=== PATIENT | female | born 1950 | race Caucasian/White ===

== ENCOUNTER 2019-01-31 17:05 | Observation (INO) | payer MEDICARE, OTHER ==
[~2019-01-31] VITALS: Ht 172.7 cm; Wt 99.5 kg
[~2019-01-31 17:05] MED LIST: CHOL10002; CYAN500; DIGOXIN; FAMO20 PO; FISH OIL + D31 EACH; FURO40; LEVSOD100; LEVSOD100 PO; METF500C; METO50; Ocuvite Softge1 EAC1; PANT40 PO; Red Yeast Rice600 MG; XARELTO20 MG
[2019-01-31 17:27] LABS: BASOPHILS ABSOLUTE AUTO 0.03 K/mm3 (0.00-0.23); BASOPHILS PERCENT AUTO 0 % (0-2); EOSINOPHILS ABSOLUTE AUTO 0.09 K/mm3 (0.00-0.68); EOSINOPHILS PERCENT AUTO 1 % (0-6); IMMATURE GRAN ABSOLUTE AUTO 0.04 K/mm3 (0.00-0.10); IMMATURE GRAN PERCENT AUTO 0 % (0-1); LYMPHOCYTES ABSOLUTE AUTO 2.83 K/mm3 (0.84-5.20); LYMPHOCYTES PERCENT AUTO 28 % (21-46); MONOCYTES ABSOLUTE AUTO 0.92 K/mm3 (0.16-1.47); MONOCYTES PERCENT AUTO 9 % (4-13); Mean Corpuscular HGB 32.2 pg (26.0-34.0); Mean Corpuscular HGB Conc 33.3 g/dL (31.5-36.5); Mean Corpuscular Volume 97 fL (80-100); Mean Platelet Volume 10.7 fL (9.1-12.4); NEUTROPHILS ABSOLUTE AUTO 6.38 K/mm3 (1.96-9.15); NEUTROPHILS PERCENT AUTO 62 % (41-73); Platelet Count 234 K/mm3 (150-400); RDW Coefficient Variation 14.1 % (11.7-14.2); RDW Standard Deviation 50.1 fL (35.1-46.3); Red Blood Cell Count 4.04 M/mm3 (3.80-5.20); White Blood Cell Count 10.29 K/mm3 (4.00-11.30)
[2019-01-31 17:41] LABS: International Normalized Ratio 2.57
[2019-01-31 17:46] LABS: Alanine Aminotransfer (ALT/SGP 29 U/L (12-78); Albumin/Globulin Ratio 1.1 (0.8-1.8); Alk Phos 71 U/L (50-136); Anion Gap 7 mmol/L (6-16); Aspartate Aminotrans (AST/SGOT 24 U/L (12-37); Blood Urea Nitrogen 17 mg/dL (8-24); Bun/Creatinine Ratio 17.3 (12.0-20.0); CO2, Blood 28 mmol/L (21-32); Calcium, Blood 8.9 mg/dL (8.5-10.1); Chloride, Blood 102 mmol/L (98-108); Creatinine, Blood 0.98 mg/dL (0.40-1.00); Globulin, Blood 3.8 g/dL (2.2-4.0); Glomerular Filtration Rate 60 (60-); Glucose, Blood 89 mg/dL (70-99); Potassium, Blood 3.6 mmol/L (3.5-5.5); Sodium, Blood 137 mmol/L (136-145); Total Protein, Blood 7.8 g/dL (6.4-8.2); Troponin I <0.015 ng/mL (0.000-0.040)
[2019-01-31 18:03] LABS: Digoxin (Lanoxin) 1.58 ug/mL (0.80-2.00)
[2019-01-31] MEDS ORDERED: CHOL10002 (18:21)
[2019-01-31] MEDS ORDERED: FAMO20 PO (18:22)
[2019-01-31] MEDS ORDERED: DIGOX250 MCG PO (18:22)
[2019-01-31] MEDS ORDERED: LEVSOD100 PO (18:23)
[2019-01-31] MEDS ORDERED: METO50 PO (18:23)
[2019-01-31] MEDS ORDERED: WARF7.5 PO (18:24)
[2019-01-31 18:38] LABS: Free Thyroxine 1.3 ng/dL (0.70-1.60)
[2019-01-31 18:41] LABS: Thyroid Stimulating Hormone 1.1 uIU/mL (0.360-4.800); Triiodothyronine, Free 2.3 pg/mL (2.18-3.98)
--- NOTE | 2019-02-01 03:54 | NUR ---
NOC SHIFT SUMMARY PT ADMITTED THIS NIGHT FOR CHEST PAIN/PRESSURE WHICH STARTED THE PREVIOUS DAY AND SEEMED TO WORSEN WHEN HER GRANDSON SMOKES MARIJUANA INSIDE THE HOUSE. THE PAIN WAS RELIEVED WITH NITRO PRIOR TO ADMITT. PT STATES SHE HAS NOT HAD ANY PAIN SINCE COMING TO THE FLOOR. ON TELE AFIB RATE 55 AT THIS TIME PER RACING MECHANIC. PT HAS BEEN NPO SINCE MIDNIGHT IN ANTICIPATION OF STRESS TEST IN A.M. VSS. APPEARS IN NO ACTUE DISTRESS. WILL CONTINUE TO MONITOR.
[2019-02-01 05:24] LABS: BASOPHILS ABSOLUTE AUTO 0.02 K/mm3 (0.00-0.23); BASOPHILS PERCENT AUTO 0 % (0-2); EOSINOPHILS ABSOLUTE AUTO 0.11 K/mm3 (0.00-0.68); EOSINOPHILS PERCENT AUTO 2 % (0-6); Hematocrit 39.9 % (33.0-51.0); Hemoglobin 13.1 g/dL (11.5-16.0); IMMATURE GRAN ABSOLUTE AUTO 0.01 K/mm3 (0.00-0.10); IMMATURE GRAN PERCENT AUTO 0 % (0-1); LYMPHOCYTES ABSOLUTE AUTO 2.21 K/mm3 (0.84-5.20); LYMPHOCYTES PERCENT AUTO 38 % (21-46); MONOCYTES ABSOLUTE AUTO 0.55 K/mm3 (0.16-1.47); MONOCYTES PERCENT AUTO 9 % (4-13); Mean Corpuscular HGB Conc 32.8 g/dL (31.5-36.5); Mean Corpuscular Volume 97 fL (80-100); Mean Platelet Volume 10.2 fL (9.1-12.4); NEUTROPHILS PERCENT AUTO 51 % (41-73); Platelet Count 190 K/mm3 (150-400); RDW Coefficient Variation 13.9 % (11.7-14.2); RDW Standard Deviation 50.4 fL (35.1-46.3)
[2019-02-01 05:37] LABS: International Normalized Ratio 2.54; Prothrombin Time Results 24.7 Sec (9.7-11.5)
[2019-02-01 05:51] LABS: Anion Gap 8 mmol/L (6-16); Blood Urea Nitrogen 15 mg/dL (8-24); Bun/Creatinine Ratio 18.1 (12.0-20.0); CO2, Blood 28 mmol/L (21-32); Calcium, Blood 8.8 mg/dL (8.5-10.1); Chloride, Blood 105 mmol/L (98-108); Creatinine, Blood 0.83 mg/dL (0.40-1.00); Glomerular Filtration Rate >60 (60-); Glucose, Blood 99 mg/dL (70-99); Potassium, Blood 3.2 mmol/L (3.5-5.5); Sodium, Blood 141 mmol/L (136-145)
[2019-02-01 07:54] LABS: CHOL/HDL RATIO 2.7; Cholesterol 134 mg/dL (50-200); HDL Cholesterol 50 mg/dL (>39); LDL/HDL RATIO 1.2; Low Density Lipoprotein Chol 59 mg/dL (0-110); Magnesium, Blood 2.1 mg/dL (1.6-2.4); Triglycerides 127 mg/dL (30-160); Very Low Density Lipoprot Chol 25 mg/dL (6-32)
--- NOTE | 2019-02-01 09:17 | NUR ---
MEDS HELD DUE TO STRESS TEST IN PROGRESS; PT NPO.
--- NOTE | 2019-02-01 12:18 | NUR ---
echocardiogram complete
--- NOTE | 2019-02-01 15:35 | NUR ---
CALLED DR. LUIS AND NOTIFIED HER THAT PT'S CARDIAC STRESS RESULTS WERE AVAILABLE.
[2019-02-01] MEDS ORDERED: ASPI81CH PO (17:05)
--- NOTE | 2019-02-01 17:15 | NUR ---
PT DISCHARGED AMBULATORY POV WITH SPOUSE AND IN NO ACUTE DISTRESS. PT TO FOLLOW UP WITH EXTENSION COURSE COORDINATOR ABOUT TODAY'S STRESS TEST RESULTS AND POSSIBLE ANGIOGRAM OUTPATIENT. DR. LUIS TO CALL PT IN A.M. WITH ECHO RESULTS. PT AND SPOUSE VERBALIZED UNDERSTANDING OF DISCHARGE INSTRUCTIONS AND IMPORTANCE OF RETURNING TO THE HOSPITAL IF CHEST PAIN RETURNS OR IF SYMPTOMS WORSEN. IV DISCONTINUED INTACT. ALL BELONGINGS SENT HOME WITH PT.
== END 2019-02-01 17:12 | disposition home or self-care (01) ==
LOC: ER 17:05 → MEDS 17:06
PROVIDERS: Emergency Medicine; ADMIT Internal Medicine
DX: R07.89 Other chest pain (principal); R94.39 Abnormal result of other cardiovascular function study; E03.9 Hypothyroidism, unspecified; K21.9 Gastro-esophageal reflux disease without esophagitis; J45.909 Unspecified asthma, uncomplicated; I48.91 Unspecified atrial fibrillation; Z88.8 Allergy status to other drugs, medicaments and biological substances; Z79.899 Other long term (current) drug therapy
CPT/HCPCS: 36415; 71046; 78452; 80048; 80053; 80061; 80162; 83735; 83880; 84439; 84443; 84481; 84484; 85025; 85610; 85730; 93005; 93010; 93017; 93306; 99285-25; A9500; G0378; J0706; J2785

== ENCOUNTER → 2022-08-11 | Outpatient (CLI) | payer MEDICARE, OTHER ==
[~2022-08-11] MED LIST changes: +ASPI81CH PO; +DIGOX250 MCG PO; +METO50 PO; +WARF7.5 PO
[2022-08-11 16:21] LABS: BASOPHILS ABSOLUTE AUTO 0.02 K/mm3 (0.00-0.23); BASOPHILS PERCENT AUTO 0 % (0-2); EOSINOPHILS ABSOLUTE AUTO 0.03 K/mm3 (0.00-0.68); EOSINOPHILS PERCENT AUTO 0 % (0-6); Hematocrit 36.4 % (33.0-51.0); Hemoglobin 12.4 g/dL (11.5-16.0); IMMATURE GRAN ABSOLUTE AUTO 0.02 K/mm3 (0.00-0.10); IMMATURE GRAN PERCENT AUTO 0 % (0-1); LYMPHOCYTES ABSOLUTE AUTO 1.63 K/mm3 (0.84-5.20); LYMPHOCYTES PERCENT AUTO 19 % (21-46); MONOCYTES ABSOLUTE AUTO 0.78 K/mm3 (0.16-1.47); MONOCYTES PERCENT AUTO 9 % (4-13); Mean Corpuscular HGB 32.4 pg (26.0-34.0); Mean Corpuscular HGB Conc 34.1 g/dL (31.5-36.5); Mean Corpuscular Volume 95 fL (80-100); Mean Platelet Volume 9.2 fL (9.1-12.4); NEUTROPHILS ABSOLUTE AUTO 5.98 K/mm3 (1.96-9.15); NEUTROPHILS PERCENT AUTO 71 % (41-73); Platelet Count 275 K/mm3 (150-400); RDW Coefficient Variation 14.3 % (11.7-14.2); RDW Standard Deviation 49.3 fL (35.1-46.3); Red Blood Cell Count 3.83 M/mm3 (3.80-5.20); White Blood Cell Count 8.46 K/mm3 (4.00-11.30)
[2022-08-11 16:30] LABS: Albumin, Blood 3.2 g/dL (3.4-5.0); Albumin/Globulin Ratio 0.7 (0.8-1.8); Bilirubin, Total 0.7 mg/dL (0.1-1.0); Bun/Creatinine Ratio 12.9 (12.0-20.0); Calcium, Blood 9.4 mg/dL (8.5-10.1); Creatinine, Blood 1.01 mg/dL (0.40-1.00); Globulin, Blood 4.8 g/dL (2.2-4.0); Potassium, Blood 3.8 mmol/L (3.5-5.5)
== END | disposition home or self-care (01) ==
LOC: LAB 16:15 → LAB SHORT 16:15
PROVIDERS: Physician Assistant
DX: R05.3 Chronic cough (principal)
CPT/HCPCS: 80053; 83880; 85025

== ENCOUNTER 2025-03-27 18:35 | Inpatient (IN) | payer MEDICARE, OTHER ==
[~2025-03-27] VITALS: Ht 170.2 cm; Wt 138.6 kg
[~2025-03-27 18:35] MED LIST changes: +METO100ER PO; -METO50 PO
[2025-03-27] MEDS ORDERED: NS 1,000 ML IV SCH (18:50)
[2025-03-27 19:01] LABS: BASOPHILS ABSOLUTE AUTO 0.02 K/mm3 (0.00-0.23); BASOPHILS PERCENT AUTO 0 % (0-2); EOSINOPHILS ABSOLUTE AUTO 0.00 K/mm3 (0.00-0.68); EOSINOPHILS PERCENT AUTO 0 % (0-6); Hematocrit 34.9 % (33.0-51.0); Hemoglobin 11.8 g/dL (11.5-16.0); IMMATURE GRAN ABSOLUTE AUTO 0.08 K/mm3 (0.00-0.10); IMMATURE GRAN PERCENT AUTO 1 % (0-1); LYMPHOCYTES ABSOLUTE AUTO 0.38 K/mm3 (0.84-5.20); LYMPHOCYTES PERCENT AUTO 4 % (21-46); MONOCYTES ABSOLUTE AUTO 0.35 K/mm3 (0.16-1.47); MONOCYTES PERCENT AUTO 4 % (4-13); Mean Corpuscular HGB Conc 33.8 g/dL (31.5-36.5); Mean Corpuscular Volume 96 fL (80-100); NEUTROPHILS ABSOLUTE AUTO 8.42 K/mm3 (1.96-9.15); NEUTROPHILS PERCENT AUTO 91 % (41-73); NRBC ABSOLUTE 0.00 K/mm3 (0.00-0.02); NRBC Auto 0.0 /100 WBC (0.0-0.2); Platelet Count 144 K/mm3 (150-400); RDW Coefficient Variation 14.6 % (11.7-14.2); RDW Standard Deviation 52.0 fL (35.1-46.3)
[2025-03-27] MEDS ORDERED: Clindamycin 600mg in D5W 50 ML IV ONE (19:05)
[2025-03-27 19:25] LABS: Alanine Aminotransfer (ALT/SGP 46 U/L (12-78); Albumin, Blood 3.1 g/dL (3.4-5.0); Albumin/Globulin Ratio 0.8 (0.8-1.8); Anion Gap 11 mmol/L (3-11); Aspartate Aminotrans (AST/SGOT 41 U/L (12-37); Bilirubin, Total 1.4 mg/dL (0.1-1.0); Blood Urea Nitrogen 23 mg/dL (8-24); CO2, Blood 23 mmol/L (21-32); Calcium, Blood 8.9 mg/dL (8.5-10.1); Chloride, Blood 105 mmol/L (98-108); Creatinine, Blood 1.25 mg/dL (0.40-1.00); Globulin, Blood 3.8 g/dL (2.2-4.0); Glucose, Blood 117 mg/dL (70-99); Magnesium, Blood 1.9 mg/dL (1.6-2.4); Phosphorus, Blood 2.1 mg/dL (2.5-4.9); Potassium, Blood 3.7 mmol/L (3.5-5.5); Sodium, Blood 135 mmol/L (136-145); Total Protein, Blood 6.9 g/dL (6.4-8.2)
[2025-03-27 19:39] LABS: Influenza A, PCR NEGATIVE (NEGATIVE); Influenza B, PCR NEGATIVE (NEGATIVE); Resp Syncytial Virus, PCR NEGATIVE (NEGATIVE); SARS-Cov-2 (COVID-19) PCR, MMC NEGATIVE (NEGATIVE)
[2025-03-27 21:03] LABS: Prothrombin Time Results 13.5 Sec (9.7-11.5)
[2025-03-27] MEDS ORDERED: Potassium Phosphate Dibasic 15 MM in Dextrose 5% 250 ML IV STA (22:09)
[2025-03-27] MEDS ORDERED: Mag Sulfate 1 GM/D5% 100ML 100 ML IV STA (22:15)
[2025-03-27 22:23] LABS: Source, Urine Clean Catch
[2025-03-27 22:33] LABS: C-REACTIVE PROTEIN, EXT RANGE >19.000 mg/dL (0.000-0.300)
[2025-03-27 22:39] LABS: Bilirubin, Urine Neg (Neg); Glucose Qualitative, Urine Neg (Neg); Ketones, Urine Neg (Neg); Leukocyte Esterase, Urine 1+ (Neg); Protein, Urine 3+ (Neg); Specific Gravity, Urine 1.010 (1.003-1.022); Urobilinogen, Urine 2+ (Normal)
[2025-03-27 22:44] LABS: Color, Urine Yellow (P-Yellow)
[2025-03-27] MEDS ORDERED: CefTRIAXone Sodium 2,000 MG in NS 100 ML IV SCH (22:49)
[2025-03-28] VITALS (18 sets, daily range): BP systolic 81–147; BP diastolic 54–92
[2025-03-28] MEDS ORDERED: ENTRESTO 24 MG1 EACH PO (00:15)
[2025-03-28] MEDS ORDERED: POTA10T PO (00:16)
[2025-03-28] MEDS ORDERED: VITAMIN B12500 MCG PO (00:18)
[2025-03-28] MEDS ORDERED: FURO80 PO (00:19)
[2025-03-28] MEDS ORDERED: CefTRIAXone Sodium 2,000 MG in NS 100 ML IV SCH (01:35)
[2025-03-28] MEDS ORDERED: NS 250 ML IV PRN (01:45)
[2025-03-28 05:21] LABS: BASOPHILS ABSOLUTE AUTO 0.01 K/mm3 (0.00-0.23); BASOPHILS PERCENT AUTO 0 % (0-2); EOSINOPHILS ABSOLUTE AUTO 0.00 K/mm3 (0.00-0.68); EOSINOPHILS PERCENT AUTO 0 % (0-6); Hematocrit 35.5 % (33.0-51.0); Hemoglobin 11.9 g/dL (11.5-16.0); IMMATURE GRAN ABSOLUTE AUTO 0.02 K/mm3 (0.00-0.10); IMMATURE GRAN PERCENT AUTO 0 % (0-1); LYMPHOCYTES ABSOLUTE AUTO 0.23 K/mm3 (0.84-5.20); LYMPHOCYTES PERCENT AUTO 3 % (21-46); MONOCYTES ABSOLUTE AUTO 0.24 K/mm3 (0.16-1.47); MONOCYTES PERCENT AUTO 3 % (4-13); Mean Corpuscular HGB Conc 33.5 g/dL (31.5-36.5); Mean Corpuscular Volume 98 fL (80-100); NEUTROPHILS ABSOLUTE AUTO 6.75 K/mm3 (1.96-9.15); NEUTROPHILS PERCENT AUTO 93 % (41-73); NRBC ABSOLUTE 0.00 K/mm3 (0.00-0.02); NRBC Auto 0.0 /100 WBC (0.0-0.2); Platelet Count 124 K/mm3 (150-400); RDW Coefficient Variation 14.7 % (11.7-14.2); RDW Standard Deviation 53.1 fL (35.1-46.3)
--- NOTE | 2025-03-28 05:27 | NUR ---
PT CAME TO FLOOR FROM ED AT 0105. SEPSIS DT CELLULITIS OF L LEG. PT IS ALERT AND ORIENTED WITH BOUTS OF CONFUSION. ORDERS PUT IN BY DR GUNN AROUND 0520 DT HIGH HR, FEVER AND BP. MEDICATED PER EMAR, BOLUS OF LR RAN. PT TOLERATED WELL.
[2025-03-28 05:39] LABS: Alanine Aminotransfer (ALT/SGP 44.0 U/L (12-78); Albumin, Blood 2.9 g/dL (3.4-5.0); Albumin/Globulin Ratio 0.7 (0.8-1.8); Anion Gap 11.0 mmol/L (3-11); Aspartate Aminotrans (AST/SGOT 40.0 U/L (12-37); Bilirubin, Total 1.8 mg/dL (0.1-1.0); Blood Urea Nitrogen 22.0 mg/dL (8-24); CO2, Blood 23.0 mmol/L (21-32); Calcium, Blood 8.4 mg/dL (8.5-10.1); Chloride, Blood 105.0 mmol/L (98-108); Creatinine, Blood 1.17 mg/dL (0.40-1.00); Globulin, Blood 4.0 g/dL (2.2-4.0); Glucose, Blood 129.0 mg/dL (70-99); Phosphorus, Blood 2.9 mg/dL (2.5-4.9); Potassium, Blood 3.8 mmol/L (3.5-5.5); Sodium, Blood 135.0 mmol/L (136-145); Total Protein, Blood 6.9 g/dL (6.4-8.2)
[2025-03-28] MEDS ORDERED: Metoprolol Tartrate 1 MG/ML 5 ML VIAL IV ONE (06:00)
--- NOTE | 2025-03-28 06:41 | NUR ---
VITALS 111/48 123 103.0 - TEMPORAL 102 - ORAL 88% 2L NC ADDED AFLUTTER ON TELE
[2025-03-28] MEDS ORDERED: Mag Sulfate 1 GM/D5% 100ML 100 ML IV STA (07:08)
[2025-03-28 07:37] LABS: Magnesium, Blood 2.1 mg/dL (1.6-2.4); Thyroid Stimulating Hormone 0.798 uIU/mL (0.360-4.800)
[2025-03-28 07:41] LABS: C-REACTIVE PROTEIN, EXT RANGE >19.000 mg/dL (0.000-0.300)
[2025-03-28 07:51] LABS: pH Blood Venous 7.45 (7.34-7.37)
--- NOTE | 2025-03-28 08:01 | NUR ---
CALL FROM [facility] IN [facility]: BLOOD Cx + GRAM+ COCCI IN CHAINS x2.
[2025-03-28] MEDS ORDERED: Lactobacil 2-S.Thermo-Bifido 1 1 Cap PO SCH (09:00)
[2025-03-28] MEDS ORDERED: Heparin Sodium,Porcine 5,000 UNIT/0.5 ML SDV SC SCH (09:00)
--- NOTE | 2025-03-28 09:33 | NUR ---
REPORT TO REGI MCPHERSON. PT TO TRANSFER TO [facility].
--- NOTE | 2025-03-28 10:01 | NUR ---
TRANSFER NOTE: PT TRANSFERRED TO [facility] AFTER GIVING REPORT TO REGI MCPHERSON. LR @ 200mL/hr VIA RFA; NOTED TO BE INFILTRATED UPON ARRIVAL TO PCU--TOTAL VOLUME INFUSED 33mL LR. LEFT FLOOR WITH ALL BELONGINGS, PAPER CHART AND MORNING MEDS (HELD PER CLINICAL JUDGMENT D/T PT MENTAL STATUS.
[2025-03-28] MEDS ORDERED: Miconazole Nitrate 2% 85 GM PWD TOP SCH ×2 (10:55→21:00)
[2025-03-28] MEDS ORDERED: Polyethylene Glycol 3350 17 gm PO SCH (11:00)
[2025-03-28] MEDS ORDERED: Clindamycin 900mg in D5W 50ML 50 ML IV SCH (14:00)
--- NOTE | 2025-03-28 17:27 | NUR ---
EOS: PATIENT MINIMALLY IMPROVED THROUGH THE SHIFT, IS A/O X 3, BUT IMPROVING WELL. TOELRATING ORAL INTAKE, PILLS WHOLE WITH WATER, DENIED CHEST PAIN/PRESSURE OR SOB AT REST THROUGH THE SHIFT, WENT TO IMAGING FOR CXR, IS SLIGHTLY RETAINING URINE BUT WAS ABLE TO VOID 200, BLADDER TRAINING AND ENCOURAGEMENT, DECLINED STRAIGHT CATH AT THIS TIME. CONTINUING TO MONITOR. HR HAS BEEN SLIGHTLY BETTER ARRIVED TO THE UNIT IN THE 130'S CURRENLTY 100-110'S. BLOOD PRESSURE ALSO IMPROVED THROUGHOUT THE DAY SYSTOLIC IN THE 100-110'S. ONLY CONCERN IS VOIDING, PATIENT EDUCATED WELL ON NEED AND POTENTIAL STRAIGHT CATH. PATIENT UNDERSTOOD. PLAN OF CARE CONTINUES
--- NOTE | 2025-03-28 17:52 | NUR ---
EOS: PATIENT IS ALERT AND ORIENTED X 2-3, MENTATION WAKES AND WANES, HAS BEEN SLEEPING MOST OF THE DAY WAKES EASILY FOR CARES, ABLE TO ANSWER MOST QUESTIONS APPRORIATELY DOES HAVE MUMBLED SLURRED SPEECH WHICH APPEARS TO BE BASELINE, DENIES CHEST PAIN/PRESSURE OR SOB AT REST, THIS AM WAS ON 4L VIA NC WITH SPO2 >98%, DECREASED TO 2-2.5L SPO2 > 92%. PT WITH HX OF COPD. BLOOD PRESSURE SLIGHTLY HYPERTENSIVE THIS AM, SLIGHTLY IMPROVED OF THIS EVENING. CIWA RANGED FROM 4-11, MEDICATED ONCE WITH LIBRIUM PO 50mg PER ORDERS. PATIENT ABLE TO MAKE NEEDS KNOWN MOST OF THE TIME, BED ALARM ON FOR SAFETY DID SET OF A COUPLE OF TIMES. DOES NOT UTILIZE CALL LIGHT APPROPRIATELY. NO ACUTE CONCERNS PATIENT IS NOW MEDICAL STATUS. [facility]
[2025-03-29] VITALS (7 sets, daily range): BP systolic 80–110; BP diastolic 56–77
[2025-03-29 05:33] LABS: BASOPHILS ABSOLUTE AUTO 0.01 K/mm3 (0.00-0.23); BASOPHILS PERCENT AUTO 0 % (0-2); EOSINOPHILS ABSOLUTE AUTO 0.01 K/mm3 (0.00-0.68); EOSINOPHILS PERCENT AUTO 0 % (0-6); Hematocrit 32.0 % (33.0-51.0); Hemoglobin 10.7 g/dL (11.5-16.0); IMMATURE GRAN ABSOLUTE AUTO 0.02 K/mm3 (0.00-0.10); IMMATURE GRAN PERCENT AUTO 0 % (0-1); LYMPHOCYTES ABSOLUTE AUTO 0.51 K/mm3 (0.84-5.20); LYMPHOCYTES PERCENT AUTO 10 % (21-46); MONOCYTES ABSOLUTE AUTO 0.50 K/mm3 (0.16-1.47); MONOCYTES PERCENT AUTO 10 % (4-13); Mean Corpuscular HGB Conc 33.4 g/dL (31.5-36.5); Mean Corpuscular Volume 95 fL (80-100); NEUTROPHILS ABSOLUTE AUTO 4.13 K/mm3 (1.96-9.15); NEUTROPHILS PERCENT AUTO 80 % (41-73); NRBC ABSOLUTE 0.00 K/mm3 (0.00-0.02); NRBC Auto 0.0 /100 WBC (0.0-0.2); Platelet Count 115 K/mm3 (150-400); RDW Coefficient Variation 14.4 % (11.7-14.2); RDW Standard Deviation 50.5 fL (35.1-46.3)
[2025-03-29 05:50] LABS: Alanine Aminotransfer (ALT/SGP 57.0 U/L (12-78); Albumin, Blood 2.5 g/dL (3.4-5.0); Albumin/Globulin Ratio 0.7 (0.8-1.8); Anion Gap 9.0 mmol/L (3-11); Aspartate Aminotrans (AST/SGOT 70.0 U/L (12-37); Bilirubin, Total 1.3 mg/dL (0.1-1.0); Blood Urea Nitrogen 19.0 mg/dL (8-24); CO2, Blood 25.0 mmol/L (21-32); Calcium, Blood 8.1 mg/dL (8.5-10.1); Chloride, Blood 102.0 mmol/L (98-108); Creatinine, Blood 0.98 mg/dL (0.40-1.00); Globulin, Blood 3.8 g/dL (2.2-4.0); Glucose, Blood 96.0 mg/dL (70-99); Magnesium, Blood 2.1 mg/dL (1.6-2.4); Potassium, Blood 3.6 mmol/L (3.5-5.5); Sodium, Blood 132.0 mmol/L (136-145); Total Protein, Blood 6.3 g/dL (6.4-8.2)
--- NOTE | 2025-03-29 07:30 | NUR ---
SHIFT SUMMARY: PT IS A&OX3, OFF ON THE DATE. JUAN JOSE IS PLEASANT AND COOPERATIVE WITH CARE. VSS ON 1.5L OXYGEN VIA NC, SPO2 94%. AFLUTTER 120'S-130'S, OCCASIONALLY HR HIT 150. DAYTIME DOSE OF METOPROLOL GIVEN AT 0006, D/T HR. DENIES PAIN. TOLERATING A HEART HEALTHY DIET. PT NOT OOB THIS SHIFT, REPOSITIONING TOLERATED. WICKING SYSTEM IN PLACE. VOIDING SMALL AMOUNTS OF DARK COLLEEN COLORED URINE. NO BM THIS SHIFT, BOWEL CARE ADMINISTERED. BED IN LOWEST POSITION, CALL LIGHT WITHIN REACH. CALLS APPROPRIATELY AND IS ABLE TO ADVOCATE NEEDS EFFECTIVELY.
[2025-03-29] MEDS ORDERED: Potassium Chloride 10 Meq Tablet SA PO SCH (08:00)
[2025-03-29] MEDS ORDERED: PRESERVISION A1 EAC1 PO (09:31)
--- NOTE | 2025-03-29 16:21 | NUR ---
SHIFT SUMMARY PT A&Ox4, CALLS AND COMMUNICATES NEEDS APPROPRIATELY. BP SOFT WITH SBP 80-100's, MAP> 65, ASYMPTOMATIC, A-FLUTTER 100-130's, DENIES CP/PRESSURE. SpO2> 92% RA, DENIES SOB. PT REMAINED BEDREST, Q2 TURNS PROVIDED. PUREWICK IN PLACE FOR INCONTINENCE AND ACCURATE I&Os. MINIMAL DARK COLLEEN URINE OUTPUT THIS SHIFT. NO C/O PAIN. REDNESS IN LLE IMPROVING. NO OTHER EVENTS, WILL REPORT TO ONCOMING RN
[2025-03-30] VITALS (8 sets, daily range): BP systolic 87–111; BP diastolic 61–78
[2025-03-30 04:28] LABS: BASOPHILS ABSOLUTE AUTO 0.01 K/mm3 (0.00-0.23); BASOPHILS PERCENT AUTO 0 % (0-2); EOSINOPHILS ABSOLUTE AUTO 0.09 K/mm3 (0.00-0.68); EOSINOPHILS PERCENT AUTO 2 % (0-6); Hematocrit 33.7 % (33.0-51.0); Hemoglobin 11.0 g/dL (11.5-16.0); IMMATURE GRAN ABSOLUTE AUTO 0.04 K/mm3 (0.00-0.10); IMMATURE GRAN PERCENT AUTO 1 % (0-1); LYMPHOCYTES ABSOLUTE AUTO 0.61 K/mm3 (0.84-5.20); LYMPHOCYTES PERCENT AUTO 15 % (21-46); MONOCYTES ABSOLUTE AUTO 0.60 K/mm3 (0.16-1.47); MONOCYTES PERCENT AUTO 15 % (4-13); Mean Corpuscular HGB Conc 32.6 g/dL (31.5-36.5); Mean Corpuscular Volume 97 fL (80-100); NEUTROPHILS ABSOLUTE AUTO 2.72 K/mm3 (1.96-9.15); NEUTROPHILS PERCENT AUTO 67 % (41-73); NRBC ABSOLUTE 0.00 K/mm3 (0.00-0.02); NRBC Auto 0.0 /100 WBC (0.0-0.2); Platelet Count 108 K/mm3 (150-400); RDW Coefficient Variation 14.7 % (11.7-14.2); RDW Standard Deviation 53.3 fL (35.1-46.3)
--- NOTE | 2025-03-30 04:41 | NUR ---
SHIFT SUMMARY THIS RN ASSUMED CARE OF PATIENT AT 1900. PT A&0 X4. ABLE TO MAKE NEEDS KNOWN. AFIB WITH HR 90-120S. DENIES CHEST PAIN/PRESSURE. BP SOFT WITH SBP 80-100S. MAP >65. ON RA WITH SPO2 >92%. AFEBRILE. PUREWICK IN PLACE. COLLEEN COLORED URINE NOTED. LLE CELLULITIS REMAINS IN MARKED OUTLINES. REPORTS PAIN WHEN PALPATING BACK OF LEG. ASSISTING WITH REPOSITIONING. BED IN LOWEST POSITION AND CALL LIGHT WITHIN REACH. THIS RN WILL REPORT TO ONCOMING DAYSHIFT RN.
[2025-03-30 05:00] LABS: Alanine Aminotransfer (ALT/SGP 70.0 U/L (12-78); Albumin, Blood 2.3 g/dL (3.4-5.0); Albumin/Globulin Ratio 0.6 (0.8-1.8); Anion Gap 9.0 mmol/L (3-11); Aspartate Aminotrans (AST/SGOT 82.0 U/L (12-37); Bilirubin, Total 1.2 mg/dL (0.1-1.0); Blood Urea Nitrogen 19.0 mg/dL (8-24); CO2, Blood 24.0 mmol/L (21-32); Calcium, Blood 8.5 mg/dL (8.5-10.1); Chloride, Blood 102.0 mmol/L (98-108); Creatinine, Blood 0.94 mg/dL (0.40-1.00); Globulin, Blood 3.9 g/dL (2.2-4.0); Glucose, Blood 88.0 mg/dL (70-99); Magnesium, Blood 2.4 mg/dL (1.6-2.4); Potassium, Blood 3.8 mmol/L (3.5-5.5); Sodium, Blood 131.0 mmol/L (136-145); Total Protein, Blood 6.2 g/dL (6.4-8.2)
[2025-03-30] MEDS ORDERED: PRESERVISION AREDS PO SCH (09:00)
[2025-03-30] MEDS ORDERED: Beta-Carotene (A) W-C & E/Min 1 Tab PO SCH (10:00)
--- NOTE | 2025-03-30 14:10 | NUR ---
REPORT TO NATHAN RN PT A&Ox4, CALLS AND COMMUNICATES NEEDS APPROPRIATELY. BP SOFT WITH SBP 80-100's, MAP> 65, ASYMPTOMATIC, A-FLUTTER 100-130's, DENIES CP/PRESSURE. SpO2> 92% RA, DENIES SOB. PT UP TO CHAIR WITH 1 ASSIST AND FWW. CONTIENT OF URINE AND BOWEL TO BSC, URINE IS DARK COLLEEN. MINIMAL DARK COLLEEN URINE OUTPUT THIS SHIFT. NO C/O PAIN. REDNESS IN LLE IMPROVING. NO OTHER EVENTS, REPORT GIVEN TO RN ASSUMING CARE.
--- NOTE | 2025-03-30 18:12 | NUR ---
PT IN RECLINER RESTING WITH EYES CLOSED AND EVEN RISE AND FALL OF CHEST. NO NEEDS OR CONCERNS NOTED @ THIS TIME. CALL LIGHT AND PERSONAL BELONGINGS IN REACH.
[2025-03-31 03:03] VITALS: BP 98/71
[2025-03-31 04:18] LABS: BASOPHILS ABSOLUTE AUTO 0.02 K/mm3 (0.00-0.23); BASOPHILS PERCENT AUTO 0 % (0-2); EOSINOPHILS ABSOLUTE AUTO 0.06 K/mm3 (0.00-0.68); EOSINOPHILS PERCENT AUTO 1 % (0-6); Hematocrit 30.1 % (33.0-51.0); Hemoglobin 10.3 g/dL (11.5-16.0); IMMATURE GRAN ABSOLUTE AUTO 0.26 K/mm3 (0.00-0.10); IMMATURE GRAN PERCENT AUTO 5 % (0-1); LYMPHOCYTES ABSOLUTE AUTO 0.83 K/mm3 (0.84-5.20); LYMPHOCYTES PERCENT AUTO 15 % (21-46); MONOCYTES ABSOLUTE AUTO 0.55 K/mm3 (0.16-1.47); MONOCYTES PERCENT AUTO 10 % (4-13); Mean Corpuscular HGB Conc 34.2 g/dL (31.5-36.5); Mean Corpuscular Volume 94 fL (80-100); NEUTROPHILS ABSOLUTE AUTO 3.80 K/mm3 (1.96-9.15); NEUTROPHILS PERCENT AUTO 69 % (41-73); NRBC ABSOLUTE 0.00 K/mm3 (0.00-0.02); NRBC Auto 0.0 /100 WBC (0.0-0.2); Platelet Count 132 K/mm3 (150-400); RDW Coefficient Variation 14.6 % (11.7-14.2); RDW Standard Deviation 50.8 fL (35.1-46.3)
[2025-03-31 04:47] LABS: Alanine Aminotransfer (ALT/SGP 81.0 U/L (12-78); Albumin, Blood 2.3 g/dL (3.4-5.0); Albumin/Globulin Ratio 0.6 (0.8-1.8); Anion Gap 12.0 mmol/L (3-11); Aspartate Aminotrans (AST/SGOT 96.0 U/L (12-37); Bilirubin, Total 1.1 mg/dL (0.1-1.0); Blood Urea Nitrogen 15.0 mg/dL (8-24); CO2, Blood 22.0 mmol/L (21-32); Calcium, Blood 8.4 mg/dL (8.5-10.1); Chloride, Blood 100.0 mmol/L (98-108); Creatinine, Blood 0.86 mg/dL (0.40-1.00); Globulin, Blood 3.9 g/dL (2.2-4.0); Glucose, Blood 101.0 mg/dL (70-99); Potassium, Blood 3.7 mmol/L (3.5-5.5); Sodium, Blood 130.0 mmol/L (136-145); Total Protein, Blood 6.2 g/dL (6.4-8.2)
--- NOTE | 2025-03-31 05:59 | NUR ---
SHIFT SUMMARY PT IS ALERT, ABLE TO MAKE NEEDS KNOWN, MOVING ALL EXTREMITIES WITH PURPOSE, OBEYS COMMANDS, CALLS APPROPRIATELY, 1 PERSON ASSIST WITH FWW. SPO2 GREATER THAN 92% ON RA, LUNGS SOUND CLEAR T/O, PT DENIES SOB T/O THIS SHIFT. CONTINUOUS TELE MONITORING, AFIB 90-130 S, PULSES PRESENT T/O, BP STABLE WITH MAP GREATER THAN 65. BOWEL TONES PRESENT IN ALL 4Q, PT DENIES FEELINGS OF NAUSEA OR CONSTIPATION OR PAIN. VOIDING IND, URINE COLLEEN IN COLOR. BED LOWEST POSITION, CALL LIGHT IN REACH, AWAITING TO GIVE REPORT TO ONCOMING RN.
[2025-03-31 07:10] VITALS: BP 101/24; BP 101/74
[2025-03-31 11:48] VITALS: BP 88/66
[2025-03-31 16:13] VITALS: BP 96/72
--- NOTE | 2025-03-31 17:43 | NUR ---
SHIFT SUMMARY: PT A&OX4. FOLLOWS COMMANDS AND MAKES NEEDS KNOWN TO STAFF. PT USED BSC TODAY AND WAS ABLE TO GET UP TO THE SHOWER WITH SBA THIS EVENING. PTS HR IS STILL TACHY. BLOOD PRESSURE HAS BEEN SOFT THROUGHOUT THE DAY. PT REMAINS IN AFIB. DENIED ANY COMPLAINTS OF CP, PRESSURE, TIGHTNESS OR SOB THROUGHOUT SHIFT. NO SIGNIFICANT EVENTS HAPPENED DURING THIS SHIFT. WILL CONTINUE TO CARE FOR PT TILL END OF SHIFT.
[2025-03-31 20:25] VITALS: BP 105/88
[2025-04-01 04:31] LABS: Hematocrit 31.6 % (33.0-51.0); Hemoglobin 10.9 g/dL (11.5-16.0); Mean Corpuscular HGB Conc 34.5 g/dL (31.5-36.5); Mean Corpuscular Volume 94 fL (80-100); NRBC ABSOLUTE 0.00 K/mm3 (0.00-0.02); NRBC Auto 0.0 /100 WBC (0.0-0.2); Platelet Count 174 K/mm3 (150-400); RDW Coefficient Variation 14.8 % (11.7-14.2); RDW Standard Deviation 51.0 fL (35.1-46.3)
[2025-04-01 04:40] VITALS: BP 127/75
[2025-04-01 05:05] LABS: Alanine Aminotransfer (ALT/SGP 79.0 U/L (12-78); Albumin, Blood 2.4 g/dL (3.4-5.0); Albumin/Globulin Ratio 0.6 (0.8-1.8); Anion Gap 9.0 mmol/L (3-11); Aspartate Aminotrans (AST/SGOT 81.0 U/L (12-37); Bilirubin, Total 0.8 mg/dL (0.1-1.0); Blood Urea Nitrogen 11.0 mg/dL (8-24); CO2, Blood 26.0 mmol/L (21-32); Calcium, Blood 8.2 mg/dL (8.5-10.1); Chloride, Blood 101.0 mmol/L (98-108); Creatinine, Blood 0.78 mg/dL (0.40-1.00); Globulin, Blood 4.0 g/dL (2.2-4.0); Glucose, Blood 92.0 mg/dL (70-99); Potassium, Blood 3.8 mmol/L (3.5-5.5); Sodium, Blood 132.0 mmol/L (136-145); Thyroid Stimulating Hormone 2.02 uIU/mL (0.360-4.800); Total Protein, Blood 6.4 g/dL (6.4-8.2)
[2025-04-01 05:13] LABS: BAND PERCENT MAN 5 % (0-8); BASOPHILS ABSOLUTE MAN 0.00 K/mm3 (0.00-0.23); BASOPHILS PERCENT MAN 0 % (0-2); EOSINOPHILS ABSOLUTE MAN 0.08 K/mm3 (0.00-0.68); EOSINOPHILS PERCENT MAN 1 % (0-6); LYMPHOCYTES % ATYPICAL MANUAL 3 % (0-0); LYMPHOCYTES ABSOLUTE MAN 1.25 K/mm3 (0.84-5.20); LYMPHOCYTES PERCENT MAN 11 % (21-46); METAMYELOCYTE ABSOLUTE MAN 0.08 K/mm3 (0.00-0.00); METAMYELOCYTE PERCENT MAN 1 % (0-0); MONOCYTES ABSOLUTE MAN 0.71 K/mm3 (0.16-1.47); MONOCYTES PERCENT MAN 8 % (4-13); NEUTROPHILS ABSOLUTE MAN 6.70 K/mm3 (1.96-9.15); PLASMA CELL ABSOLUTE MAN 0.08 K/mm3 (0.00-0.00); PLASMA CELLS PERCENT MAN 1 % (0-0); SEG NEUTROPHILS PERCENT MAN 70 % (41-73)
--- NOTE | 2025-04-01 05:41 | NUR ---
SHIFT SUMMARY - PT REMAINED A/OX4 T/O SHIFT. VERBALIZES NEEDS, COOPERATIVE WITH CARE. DENIES PAIN. ON RA, SATURATIONS ABOVE 93%, BREATHING IS UNLABORED. ON CONTINUOUS CARDIAC TELEMETRY, AFIB, HR 90'S-120'S. 3+ EDEMA IN BLE. SHE IS CONTINENT OF URINE AND STOOL, 1P ASSIST WITH FWW TO BATHROOM. POWER GLIDE IN CARLIE IS PATENT BUT DOES NOT DRAW. NO ACUTE EVENTS OVERNIGHT.
[2025-04-01 07:48] VITALS: BP 124/81
[2025-04-01] MEDS ORDERED: Enoxaparin 40 MG/0.4 ML SYR SC SCH (11:00)
[2025-04-01 12:00] VITALS: BP 114/72
[2025-04-01] MEDS ORDERED: JARDIANCE10 MG PO (12:53)
[2025-04-01] MEDS ORDERED: DIGOX125 MC1 PO (12:53)
[2025-04-01] MEDS ORDERED: ATOR10 PO (12:55)
--- NOTE | 2025-04-01 13:29 | NUR ---
DISCHARGE UPDATE DISCHARGE PACKET GONE OVER WITH PT AND PT AT 1310. PT DISHCARGED AT 1335 VIA WHEELCHIAR AND ON RA. PT ABLE TO TRANSFER TO AND FROM WHEELCHAIR WITH MINIMAL ASSISTANCE, TOLERATED WELL. DISCHARGE PACKET WITH PT AT TIME OF DISCHARGE. PT'S PERSONAL BELONGINGS IN BAGS AND WITH PT AT TIME OF DISCHARGE.
== END 2025-04-01 13:35 | disposition home or self-care (01) | DRG 872 ==
LOC: ER 18:35 → PCU 18:36 → MEDS 18:36 → PCU 03-28 10:36
PROVIDERS: Emergency Medicine; Family Medicine; Student in an Organized Health Care Education/Training Program; ADMIT Student in an Organized Health Care Education/Training Program
DX: A40.0 Sepsis due to streptococcus, group A (principal); N17.9 Acute kidney failure, unspecified; L03.116 Cellulitis of left lower limb; E87.1 Hypo-osmolality and hyponatremia; I50.20 Unspecified systolic (congestive) heart failure; I48.0 Paroxysmal atrial fibrillation; E03.9 Hypothyroidism, unspecified; K21.9 Gastro-esophageal reflux disease without esophagitis; J45.909 Unspecified asthma, uncomplicated; I25.10 Atherosclerotic heart disease of native coronary artery without angina pectoris; R65.20 Severe sepsis without septic shock; B37.2 Candidiasis of skin and nail; K59.09 Other constipation; L30.4 Erythema intertrigo; N18.2 Chronic kidney disease, stage 2 (mild); I83.892 Varicose veins of left lower extremity with other complications; Z79.01 Long term (current) use of anticoagulants; Z79.82 Long term (current) use of aspirin; Z79.890 Hormone replacement therapy; Z79.899 Other long term (current) drug therapy; Z90.710 Acquired absence of both cervix and uterus; Z90.49 Acquired absence of other specified parts of digestive tract; Z96.642 Presence of left artificial hip joint; Z98.890 Other specified postprocedural states
CPT/HCPCS: 36415; 70450; 71045; 71046; 80053; 80162; 81001; 82533; 82803; 83605; 83735; 83880; 84100; 84443; 84484; 85025; 85379; 85610; 85651; 85730; 86140; 87040; 87086; 87147; 87637; 93005; 93010; 93306; 96365; 96366; 96367; 96368; 96372; 96375; 96376; 99285-25; A6590; A9270; G0378; J0696; J1160; J1644; J3475; J7030; J7060; J7120